=== PATIENT | female | born 1960 | race Caucasian/White ===

== ENCOUNTER → 2017-10-15 | Outpatient (CLI) | payer OTHER ==
[~2017-10-15] MED LIST: ESCI10TA PO; [UNRECOGNIZED DRUG - CODE] SL
== END ==
LOC: RAD 16:03
PROVIDERS: ATTEND Nurse Practitioner Family
DX: R05 Cough (principal)
CPT/HCPCS: 71260

== ENCOUNTER → 2018-02-06 | Outpatient (CLI) | payer OTHER ==
[2018-02-06 10:56] LABS: BASOPHILS # (AUTO) 0.05 x10^3/uL (0-0.1); BASOPHILS % (AUTO) 1 % (0-1); EOSINOPHILS # (AUTO) 0.12 x10^3/uL (0-0.4); EOSINOPHILS % (AUTO) 2 % (1-7); LYMPHOCYTES # (AUTO) 2.05 x10^3/uL (1-3.4); LYMPHOCYTES % (AUTO) 31 % (22-44); MD NO; MEAN CORPUSCULAR HEMOGLOBIN 28.9 pg (27.0-34.8); MEAN CORPUSCULAR HGB CONC 34.1 g/dL (32.4-35.8); MEAN CORPUSCULAR VOLUME 84.8 fL (80-100); MEAN PLATELET VOLUME 9.9 fL (7.4-10.4); MONOCYTES % (AUTO) 8 % (2-9); NEUTROPHILS # (AUTO) 3.94 x10^3/uL (1.8-6.8); NEUTROPHILS % (AUTO) 59 % (42-75); PLATELET COUNT 275 x10^3/uL (130-400); RED BLOOD COUNT 5.02 x10^6/uL (3.82-5.3); RED CELL DISTRIBUTION WIDTH 12.8 % (9.6-15.2)
== END | disposition home or self-care (01) ==
LOC: LAB 10:25
PROVIDERS: ATTEND Internal Medicine
DX: J45.40 Moderate persistent asthma, uncomplicated (principal)
CPT/HCPCS: 36415; 82103; 82784; 82785; 83516; 85025; 86038; 86160; 86225; 86235; 86255; 86256; 86376; 86431

== ENCOUNTER 2018-06-19 06:06 | Day surgery (SDC) | payer OTHER ==
[~2018-06-19] VITALS: Ht 160 cm; Wt 86.3 kg
[~2018-06-19 06:06] MED LIST changes: +ALBU1.25 NEB; +ALBU8.5H8 INH; +ESCI10TA10 PO; +MULT-658 PO; +TIOT18CA INH; +TURM500C4 PO; +VIT1CAPS16 PO; +prednisone PO
[2018-06-19] MEDS ORDERED: SODIUM CHLORIDE 0.9% 1,000 ML IV SCH (06:46)
[2018-06-19] MEDS ORDERED: ALBUTEROL SULFATE 2.5 MG/3 ML ONE ×2 (07:06→11:19)
[2018-06-19] MEDS ORDERED: MIDAZOLAM 1 MG/ML, 5ML ONE (07:20)
[2018-06-19] MEDS ORDERED: FENTANYL PF 100 MCG/2ML ONE (07:20)
[2018-06-19] MEDS ORDERED: DIPHENHYDRAMINE 50 MG/ML, 1ML ONE (07:21)
[2018-06-19] MEDS ORDERED: GLYCOPYRROLATE 0.2MG/1ML, 5ML IM ONE (07:30)
[2018-06-19] MEDS ORDERED: LIDOCAINE 4% TOPICAL SOLUTION 50 ML ONE (08:00)
[2018-06-19] MEDS ORDERED: methylPREDNISolone SOD SUCC 40 MG/ML IV ONE (08:00)
[2018-06-19] MEDS ORDERED: ALBUTEROL SULFATE 2.5 MG/3 ML NPPB PRN (10:00)
== END 2018-06-19 12:45 | disposition home or self-care (01) ==
LOC: OUT 06:06
PROVIDERS: ATTEND Internal Medicine
DX: J45.50 Severe persistent asthma, uncomplicated (principal); Z88.6 Allergy status to analgesic agent; Z88.1 Allergy status to other antibiotic agents; Z88.5 Allergy status to narcotic agent; Z88.8 Allergy status to other drugs, medicaments and biological substances; Z90.710 Acquired absence of both cervix and uterus
CPT/HCPCS: 31660; 94060; 94640; 99152; 99153; C1886; J1200; J2250; J2920; J3010; J7030; J7512; J7613

== ENCOUNTER 2018-07-17 06:02 | Day surgery (SDC) | payer OTHER ==
[~2018-07-17] VITALS: Ht 160 cm; Wt 88.5 kg
[2018-07-17] MEDS ORDERED: SODIUM CHLORIDE 0.9% 1,000 ML IV SCH (06:42)
[2018-07-17 06:45] VITALS: BP 136/94
[2018-07-17] MEDS ORDERED: ALBUTEROL SULFATE 2.5 MG/3 ML ONE ×2 (07:02→10:58)
[2018-07-17] MEDS ORDERED: FENTANYL PF 100 MCG/2ML ONE (07:07)
[2018-07-17] MEDS ORDERED: MIDAZOLAM 1 MG/ML, 5ML ONE (07:08)
[2018-07-17] MEDS ORDERED: GLYCOPYRROLATE 0.4 MG/2 ML, 2ML ONE (07:08)
[2018-07-17] MEDS ORDERED: DIPHENHYDRAMINE 50 MG/ML, 1ML IVPush ONE (07:30)
[2018-07-17] MEDS ORDERED: LIDOCAINE 4% TOPICAL SOLUTION 50 ML ONE (08:00)
== END 2018-07-17 11:35 | disposition home or self-care (01) ==
LOC: OUT 06:02
PROVIDERS: ATTEND Internal Medicine
DX: J45.50 Severe persistent asthma, uncomplicated (principal); G47.33 Obstructive sleep apnea (adult) (pediatric); K21.9 Gastro-esophageal reflux disease without esophagitis; E03.9 Hypothyroidism, unspecified; Z88.6 Allergy status to analgesic agent; Z88.5 Allergy status to narcotic agent; Z88.0 Allergy status to penicillin; Z88.8 Allergy status to other drugs, medicaments and biological substances; Z98.890 Other specified postprocedural states
CPT/HCPCS: 31660; 94060; 94640; 99152; 99153; C1886; J2250; J3010

== ENCOUNTER 2019-05-07 06:56 | Outpatient (CLI) | payer OTHER | END 2019-05-07 23:59 | disposition home or self-care (01) | LOC: CFH 06:56 | PROVIDERS: ATTEND Nurse Practitioner | DX: M19.071 Primary osteoarthritis, right ankle and foot (principal); M65.871 Other synovitis and tenosynovitis, right ankle and foot; M84.374A Stress fracture, right foot, initial encounter for fracture ==

== ENCOUNTER 2021-04-21 08:55 | Outpatient (CLI) | payer OTHER ==
[~2021-04-21 08:55] MED LIST changes: -ESCI10TA PO; +ESCI10TA97 PO
[2021-04-21 09:36] LABS: BASOPHILS % (AUTO) 1 % (0-1); EOSINOPHILS % (AUTO) 2 % (1-7); LYMPHOCYTES % (AUTO) 36 % (22-44); MEAN CORPUSCULAR HEMOGLOBIN 29.4 pg (27.0-34.8); MEAN CORPUSCULAR HGB CONC 33.1 g/dL (32.4-35.8); MEAN PLATELET VOLUME 8.8 fL (7.4-10.4); MONOCYTES % (AUTO) 9 % (2-9); NEUTROPHILS % (AUTO) 52 % (42-75); PLATELET COUNT 260 x10^3/uL (130-400); RED BLOOD COUNT 4.94 x10^6/uL (3.82-5.3); RED CELL DISTRIBUTION WIDTH 12.7 % (9.6-15.2)
[2021-04-21 09:48] LABS: ALANINE AMINOTRANSFERASE 59 U/L (12-78); ALBUMIN 3.8 g/dL (3.4-5.0); ANION GAP 5 mmol/L (5-15); CHLORIDE 105 mmol/L (98-107); CHOLESTEROL, TOTAL 219 mg/dL (140-239); CREATININE 0.95 mg/dL (0.55-1.02)
[2021-04-21 09:50] LABS: ALKALINE PHOSPHATASE 83 U/L (45-117); BILIRUBIN,TOTAL 0.7 mg/dL (0.2-1.0); CHOL/HDL RATIO 6.1; HDL CHOL % 16 % (28-40); HDL CHOLESTEROL (DIRECT) 36 mg/dL (40-60); LDL CHOLESTEROL,CALCULATED 121 mg/dL (54-169); LDL/HDL RATIO 3.4 (0.5-3.0); TOTAL PROTEIN 7.7 g/dL (6.4-8.2); TRIGLYCERIDES 312 mg/dL (50-200); VLDL CHOLESTEROL 62 mg/dL (0-25)
== END 2021-04-21 23:59 | disposition home or self-care (01) ==
LOC: RAD 08:55
PROVIDERS: ATTEND Physician Assistant Medical
DX: Z00.01 Encounter for general adult medical examination with abnormal findings (principal); I10 Essential (primary) hypertension; G47.33 Obstructive sleep apnea (adult) (pediatric); F06.31 Mood disorder due to known physiological condition with depressive features; J45.40 Moderate persistent asthma, uncomplicated; Z83.3 Family history of diabetes mellitus; Z82.49 Family history of ischemic heart disease and other diseases of the circulatory system
CPT/HCPCS: 36415; 80053; 80061; 85025